=== PATIENT | female | born 1960 ===

== ENCOUNTER 2018-06-22 15:21 | Emergency (ER) | payer MEDICAID ==
[~2018-06-22] VITALS: Ht 172.7 cm; Wt 64.7 kg
[2018-06-22 15:27] VITALS: BP 119/83
== END 2018-06-22 16:23 | disposition home or self-care (01) ==
LOC: ER 15:22
DX: S61.210A Laceration without foreign body of right index finger without damage to nail, initial encounter (principal); W45.8XXA Other foreign body or object entering through skin, initial encounter; Y93.89 Activity, other specified; Y92.89 Other specified places as the place of occurrence of the external cause; Y99.8 Other external cause status
CPT/HCPCS: 12001; 99283